=== PATIENT | male | born 1950 | race Caucasian/White ===

== ENCOUNTER 2023-05-24 15:24 | Emergency (ER) | payer MEDICARE ==
[~2023-05-24] VITALS: Ht 162.6 cm; Wt 77.0 kg
[2023-05-24 16:08] VITALS: BP 159/88; PULSE 110; RESP 19; TEMP 98; O2SAT 99
[2023-05-24] MEDS ORDERED: RIVAROXABAN 20 MG TABLET PO SCH (17:00)
== END 2023-05-24 18:55 | disposition home or self-care (01) ==
LOC: ER 17:50
DX: I48.91 Unspecified atrial fibrillation (principal); E11.65 Type 2 diabetes mellitus with hyperglycemia; J44.9 Chronic obstructive pulmonary disease, unspecified; I10 Essential (primary) hypertension; R00.0 Tachycardia, unspecified
CPT/HCPCS: 82962; 99283